=== PATIENT | female | born 1990 | race Caucasian/White ===

== ENCOUNTER 2016-10-27 20:38 | Emergency (ER) | payer MEDICAID ==
[~2016-10-27] VITALS: Ht 172.7 cm; Wt 99.0 kg
[~2016-10-27 20:38] MED LIST: SUBO2MIS SL
[2016-10-27 20:40] VITALS: BP 153/74; PULSE 66; RESP 16; TEMP 98.2; O2SAT 100
--- NOTE | 2016-10-27 21:26 | PD ---
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 Patient states that she is approximately 6 weeks gestation. She began having abdominal cramping and vaginal bleeding yesterday. She states she went to [facility] where they did an ultrasound, identified an intrauterine , and legibly told her "everything was okay. " Patient states she continued bleeding throughout today and passed a large piece of tissue. She is not having any significant pain, rather she reports lower abdominal cramping. She reports changing her pad 2 times an hour due to amount of bleeding. Denies any fever or chills. No urinary symptoms. She is currently being treated for UTI with Keflex. She has no other symptoms to report. PFS Past Medical History Medical History: Denies Significant Hx Diminished Hearing: No Tetanus Vaccination: Unknown Influenza Vaccination: No ?: Past Surgical History Cholecystectomy: Yes Tonsillectomy: Yes Social History Alcohol Use: No Tobacco Use: No Substance Use: No Allergies-Medications (Allergen,Severity, Reaction): Coded Allergies: No Known Allergies (Unverified , 10/27/16) Reported Meds & Prescriptions Reported Meds & Active Scripts Active Reported Suboxone Sublingual Film (Buprenorphine-Naloxone Sublingual Film) 2-0.5 Mg Film 1 Film SL PRN Unique ID number required: Review of Systems Except as stated in HPI: all other systems reviewed are Neg Physical Exam Narrative GENERAL: Well-nourished female patient, in no acute distress SKIN: Focused skin assessment warm/dry. HEAD: Atraumatic. Normocephalic. EYES: Pupils equal and round. No scleral icterus. No injection or drainage. ENT: No nasal bleeding or discharge. Mucous membranes pink and moist. NECK: Trachea midline. No JVD. CARDIOVASCULAR: Regular rate and rhythm. No murmur appreciated. RESPIRATORY: No accessory muscle use. Clear to auscultation. Breath sounds equal bilaterally. GASTROINTESTINAL: Abdomen soft, nondistended. Slight suprapubic tenderness to palpation. No rebound tenderness. No guarding. Hepatic and splenic margins not palpable. MUSCULOSKELETAL: No obvious deformities. No clubbing. No cyanosis. No edema. NEUROLOGICAL: Awake and alert. No obvious cranial nerve deficits. Motor grossly within normal limits. Normal speech. PSYCHIATRIC: Appropriate mood and affect; insight and judgment normal. Data Data Last Documented VS Vital Signs Date Time Temp Pulse Resp B/P Pulse Ox O2 Delivery O2 Flow Rate FiO2 10/27/16 20:40 98.2 66 16 153/74 100 Room Air Orders Iv Access Insert/Monitor (10/27/16 21:25) Complete Blood Count With Diff (10/27/16 21:25) Basic Metabolic Panel (Bmp) (10/27/16 21:25) Us Pelvis Preg W Transvaginal (10/27/16 ) Beta Hcg (Quant/Titer) (10/27/16 21:25) Labs Laboratory Tests Test 10/27/16 21:27 White Blood Count 8.6 TH/MM3 Red Blood Count 4.48 MIL/MM3 Hemoglobin 12.8 GM/DL Hematocrit 39.2 % Mean Corpuscular Volume 87.5 FL Mean Corpuscular Hemoglobin 28.5 PG Mean Corpuscular Hemoglobin 32.6 % Concent Red Cell Distribution Width 12.7 % Platelet Count 228 TH/MM3 Mean Platelet Volume 8.1 FL Neutrophils (%) (Auto) 54.3 % Lymphocytes (%) (Auto) 34.7 % Monocytes (%) (Auto) 9.0 % Eosinophils (%) (Auto) 1.6 % Basophils (%) (Auto) 0.4 % Neutrophils # (Auto) 4.6 TH/MM3 Lymphocytes # (Auto) 3.0 TH/MM3 Monocytes # (Auto) 0.8 TH/MM3 Eosinophils # (Auto) 0.1 TH/MM3 Basophils # (Auto) 0.0 TH/MM3 CBC Comment DIFF FINAL Differential Comment Sodium Level 140 MEQ/L Potassium Level 3.8 MEQ/L Chloride Level 106 MEQ/L Carbon Dioxide Level 26.1 MEQ/L Anion Gap 8 MEQ/L Blood Urea Nitrogen 13 MG/DL Creatinine 0.64 MG/DL Estimat Glomerular Filtration 114 ML/MIN Rate Random Glucose 86 MG/DL Calcium Level 9.2 MG/DL Human Chorionic Gonadotropin, 382 MIU/ML Quant MDM Medical Decision Making Medical Screen Exam Complete: Yes Emergency Medical Condition: Yes Medical Record Reviewed: Yes Differential Diagnosis Threatened miscarriage versus miscarriage versus menses versus vaginal bleeding during Narrative Course 26 year-old female presents to the emergency department for evaluation. Patient appears without distress. She does have with her a piece of tissue that does resemble a gestational sac. I have offered to send this to pathology , however the patient wishes to keep it with her. CBC and BMP are without acute concern. Beta hCG is 382, this is more than half decreased down her beta hCG yesterday for the hospital. Ultrasound is ordered for evaluation of retained product. No retrained product or gestational sac are identified. Findings are discussed with the patient. Patient will be discharged home to follow-up with her EMBALMER ASSISTANT. 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 Call Saturday for an appointment Return immediately to the emergency department with any acute worsening of symptoms Med/Other Pt SpecificInfo: No Change to Meds Disposition: 01 DISCHARGE HOME Condition: Stable Luisana Montalvo Oct 27, 2016 21:26 Luisana Montalvo Oct 27, 2016 21:26
[2016-10-27 21:46] LABS: AUTOMATED NEUTROPHIL # 4.6 TH/MM3 (1.8-7.7); BASOPHIL % 0.4 % (0.0-2.0); EOSINOPHIL # 0.1 TH/MM3 (0-0.4); EOSINOPHIL % 1.6 % (0.0-4.0); HEMATOCRIT 39.2 % (35.0-46.0); HEMO FLAGS DIFF FINAL; LYMPH % 34.7 % (9.0-44.0); MEAN CELL VOLUME 87.5 FL (80.0-100.0); MEAN CORPUSCULAR HEMOGLOBIN 28.5 PG (27.0-34.0); MEAN CORPUSCULAR HGB CONC 32.6 % (32.0-36.0); NEUT % 54.3 % (16.0-70.0); PLATELET COUNT 228 TH/MM3 (150-450); RED BLOOD COUNT 4.48 MIL/MM3 (4.00-5.30); RED CELL DISTRIBUTION WIDTH 12.7 % (11.6-17.2); WHITE BLOOD COUNT 8.6 TH/MM3 (4.0-11.0)
[2016-10-27 22:00] LABS: BICARBONATE 26.1 MEQ/L (21.0-32.0); POTASSIUM 3.8 MEQ/L (3.5-5.1)
--- NOTE | 2016-10-27 23:12 | RADRPT ---
EXAM DATE/TIME: 10/27/2016 22:23 [facility] COMPARISON: No previous studies available for comparison. INDICATIONS : Pelvic pain and bleeding with . LAB(S): [facility] MEDICAL HISTORY : . SURGICAL HISTORY : Tonsillectomy. Cholecystectomy. ENCOUNTER: Initial ACUITY: 2 days PAIN SCORE: 5/10 LOCATION: Bilateral pelvis MEASUREMENTS: UTERUS: 9.7 x 6.5 x 4.6 cm ENDOMETRIAL STRIPE: 9 mm RIGHT OVARY: 2.8 x 2.6 x 2.2 cm LEFT OVARY: 2.6 x 2.0 x 1.5 cm FREE FLUID: none FINDINGS: UTERUS: The myometrium has homogeneous echotexture without mass. Intrauterine not seen. Nabothian c yst. RIGHT OVARY: Complex cyst with diffuse internal echoes noted measuring 17 x 14 x 18 mm. LEFT OVARY: Ovary contains no mass or significant cystic lesion. MISCELLANEOUS: No free fluid. CONCLUSION: 1. Intrauterine is not seen. 2. Complex cyst right ovary measures 1.8 cm. Michael Conti MD on October 27, 2016 at 23:08 Board Certified Radiologist. This report was verified electronically.
[2016-10-27 23:36] VITALS: BP 134/75; PULSE 71; RESP 18; O2SAT 100
== END 2016-10-27 23:37 | disposition home or self-care (01) ==
LOC: NEPE 20:38
DX: O03.9 Complete or unspecified spontaneous abortion without complication (principal)
CPT/HCPCS: 76801; 76817; 80048; 84702; 85025

== ENCOUNTER → 2017-06-25 | Outpatient (CLI) | payer MEDICAID ==
[~2017-06-25] MED LIST changes: -SUBO2MIS SL; +TERC.4%V VAGINAL; +TRIA.1%T TOPICAL
== END ==
LOC: HPND 15:01
PROVIDERS: ATTEND Obstetrics & Gynecology
DX: O99.213 Obesity complicating pregnancy, third trimester (principal); E66.09 Other obesity due to excess calories; Z68.38 Body mass index [BMI] 38.0-38.9, adult; O36.63X0 Maternal care for excessive fetal growth, third trimester, not applicable or unspecified
CPT/HCPCS: 76816